=== PATIENT | male | born 1950 | race Caucasian/White ===

== ENCOUNTER 2023-08-16 09:08 | Outpatient (CLI) | payer MEDICARE, BC, SELFPAY ==
--- NOTE | 2023-08-16 09:00 | CRLHL7_ITS ---
For Patients: As a result of the Century Cures Act, medical imaging exams and procedure reports are released immediately into your electronic medical record. You may view this report before your referring provider. If you have questions, please contact your health care provider. INDICATION: Left knee arthroplasty. Left knee pain. Joint effusion. 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 The date of the surgery for the left knee arthroplasty was not provided. TECHNIQUE: 25.9 mCi Tc-99m labeled MDP administered. A three-phase bone scan of the knees was performed. COMPARISON : None. No correlative studies either. No plain radiographs. FINDINGS : Increased blood flow to the left knee. Blood pool images demonstrate asymmetric tracer accumulation about the left knee arthroplasty relative to the right knee particularly about the femoral component as well as the medial tibial component. Delayed images demonstrate asymmetric increased tracer accumulation about the left knee arthroplasty. Degenerative-type activity of the right knee on delayed imaging. IMPRESSION: Positive three-phase bone scan of the left knee. Clinical correlation recommended. Dictated by Jamarcus Rojas MD @ 08/16/2023 3:55:03 PM (Electronically Signed)
== END 2023-08-16 09:09 | disposition home or self-care (01) ==
PROVIDERS: PCP Surgery; Visit Provider Orthopaedic Surgery Sports Medicine
DX: M25.562 Pain in left knee (principal); M25.462 Effusion, left knee; T84.84XA Pain due to internal orthopedic prosthetic devices, implants and grafts, initial encounter; Z96.652 Presence of left artificial knee joint
CPT/HCPCS: 78315; A9503

== ENCOUNTER 2023-08-21 14:35 | Outpatient (CLI) | payer MEDICARE, BC, SELFPAY ==
[2023-08-21 16:55] LABS: BF Clarity* Cloudy; BF Color Xanthochromic; BF Total Volume* 9
[2023-08-21 17:32] LABS: Mononuclear WBC Body Fluid* 63 %; Polynuclear WBC Body Fluid* 37 %; RBC, Body Fluid* 3000 Cells/uL; WBC, Body Fluid* 2243 Cells/uL
== END 2023-08-21 14:36 | disposition home or self-care (01) ==
PROVIDERS: PCP Surgery; Visit Provider Orthopaedic Surgery Sports Medicine
DX: M25.462 Effusion, left knee (principal); Z96.652 Presence of left artificial knee joint
CPT/HCPCS: 36415; 87070; 87075; 87186; 87205; 89051; 89060